=== PATIENT | female | born 1960 | race African-American/Black ===

== ENCOUNTER 2020-08-26 17:45 | Emergency (ER) | payer MEDICAID, OTHER ==
[~2020-08-26] VITALS: Ht 162.6 cm; Wt 84.0 kg
[~2020-08-26 17:45] MED LIST: AMLO5TAB88; IRON PILL
[2020-08-26] MEDS ORDERED: LABETALOL HCL 100MG TABLET PO ONE (18:30)
[2020-08-26] MEDS ORDERED: TRAMADOL 50MG TABLET PO ONE (18:30)
[2020-08-26] MEDS ORDERED: KETOROLAC 30MG/ML VIAL IV ONE ×2 (18:30→20:15)
[2020-08-26] MEDS ORDERED: LABETALOL HCL 200MG TABLET PO NR (19:30)
[2020-08-26] MEDS ORDERED: MORPHINE SULFATE 4 MG/ML CPJ (NOT FOR IM USE) IV ONE (20:30)
[2020-08-27] MEDS ORDERED: TRAM-529 MT (00:46)
[2020-08-27] MEDS ORDERED: NAPR-679 MT (00:46)
[2020-08-27 00:52] VITALS: BP 127/99
== END 2020-08-27 00:55 | disposition home or self-care (01) ==
LOC: ER 17:45
DX: G89.29 Other chronic pain (principal); M25.551 Pain in right hip; I10 Essential (primary) hypertension; E11.9 Type 2 diabetes mellitus without complications; Z96.641 Presence of right artificial hip joint
CPT/HCPCS: 73502; 93005; 93971; 96374; 96375; 99285; J2270; J1885